=== PATIENT | male | born 1945 | race Caucasian/White ===

== ENCOUNTER → 2017-09-26 10:47 | Outpatient (CLI) | payer MEDICARE, OTHER, SELFPAY ==
--- NOTE | 2017-09-26 10:55 | XR_ITS ---
XR KUB HISTORY: Follow-up renal stone ITS.REASON: KUB ORDERING PHYSICIAN: Demian Adams MD PATIENT AGE: 71 years COMPARISON: 08/02/2016 FINDINGS: A 4 mm stone is present in the mid polar region left kidney unchanged. No obvious ureteral calculi. Multiple surgical clips are present in the lower pelvic region. IMPRESSION: No change left nephrolithiasis.
== END ==
PROVIDERS: PCP Physician Assistant; Visit Provider Urology
DX: N20.0 Calculus of kidney (principal)
CPT/HCPCS: 74018

== ENCOUNTER → 2017-12-21 14:54 | Outpatient (CLI) | payer MEDICARE, OTHER, SELFPAY ==
[2017-12-21 17:58] LABS: Free T4 (Free Thyroxine) 1.14 ng/dl (0.76-1.46); Thyroid Stimulating Hormone 0.34 uIU/ml (0.358-3.740)
[2017-12-23 08:20] LABS: Thyroid Peroxidase Antibodies 11 IU/mL (0-34)
[2017-12-25 11:14] LABS: Triiodothyronine (T3) Free 3.5 pg/mL (2.0-4.4)
[2017-12-25 11:17] LABS: Calcitonin 5.5 pg/mL (0.0-8.4)
== END ==
PROVIDERS: Visit Provider Otolaryngology
DX: E04.9 Nontoxic goiter, unspecified (principal); E07.9 Disorder of thyroid, unspecified
CPT/HCPCS: 36415; 82308; 84439; 84443; 84481; 86376

== ENCOUNTER → 2017-12-25 10:18 | Outpatient (CLI) | payer MEDICARE, OTHER, SELFPAY ==
--- NOTE | 2017-12-25 10:22 | US_ITS ---
US organ site (thyroid), FNA w guidance, US thyroid Ordering Physician: Niranjan Hopkins MD Patient Age: 72 years: Male HISTORY: ITS.REASON: fine needle bx for goiterthyroid nodules identified at [address] Nontoxic multinodular goiter history. . COMPARISON. No prior images available: Prior study performed at [facility]-patient did not bring outside films but report available and describes nodules at mid and lower left thyroid . . ----COMPLETE ULTRASOUND THYROID:-------- . Entire gland surveyed with Multiple sagittal & transverse ultrasound images of the thyroid. Heterogeneous thyroid with vague ill-defined areas of nodularity/ multinodular goiter appearance RIGHT LOBE: 4.2 cm in length as 1.7 cm wide x 1.2 cm AP. Nodule A: Vague 7.8 mm x 8.9 mm ill-defined solid nodule medial aspect upper pole right lobe. Nodule B: Vague 8.5 mm x 6.5 mm ill-defined nodule posterior aspect mid right lobe Nodule C:. Slightly better delineated 12 mm X 10 x 7 mm mm solid nodule posterior lower lobe LEFT LOBE: 4.7 cm length x 2.3 cm wide x 1.8 cm AP.. Nodules identified in the left lobe generally match the available report from [facility]. Nodule A:. Small 11 mm x 9 mm x 6.8 mm solid nodule posterior aspect upper pole left lobe Nodule B: 5.3 mm tiny solid nodule anterior aspect of mid left lobe, near junction with the isthmus *Nodule C: Large up to 3.3 cm length x 1.5 cm AP; dominant solid nodule at the mid to lower left lobe. This will be primary targeted for today's FNA biopsy. Nodule D:.. Solid nodule at the lower pole-measures up to 2.5 cm in length I suspect is confluent with nodule E described below.. *Nodule E:. Generous 2.2 cm length x 1 cm AP x 1.7 cm wide solid nodule with some hypoechoic areas within it. This areas sampled along with adjacent labeled nodule D This nodule is along the anterior aspect of lower pole left lobe near left lobe-isthmus junction. ISTHMUS: Moderate thickness measuring 5.1 mm AP.. No additional nodules are . The outside report suggested considering biopsy of dominant nodules at mid left lobe & lower pole left lobe and thus\this larger left lobe nodule were targeted.This initial complete thyroid scan and provides overview and also determined the best approach for access to perform aspiration biopsy of these 2 left lobe nodules. Scanning by Dr. Boo & MW ------ULTRASOUND-GUIDED FNA BIOPSY ----- 2 dominant nodules LEFT LOBE thyroid sampled with ultrasound-guided FNA biopsy technique . Sterile preparation as well as local skin, with cautious deeper placement of Xylocaine anesthetic initially performed .. Thereafter FNA biopsy performed . ====== FNA#1.-Left lobe Dominant nodule midportion LEFT LOBE. Under ultrasound guidance the 25-gauge hypodermic biopsy needle, was advanced to the nodule and positioned. Needle tip was observed and documented passing into the nodule on each of 2 FNA biopsies passes. Of the large nodule the anterior midportion left lobe. Good material obtained. CYTOPATHOLOGY results nodule#1 : negative for malignancy. Consistent with benign follicular nodule ====== FNA#2.-Left lobe Dominant nodule lower pole LEFT LOBE, near junction with the isthmus. Under ultrasound guidance the 25-gauge hypodermic biopsy needle, was advanced to the nodule and positioned. Needle tip was observed and documented passing into the nodule on each of 2 FNA biopsies passes. Of the large nodule the anterior aspect lower left lobe near junction of isthmus. Good material obtained. CYTOPATHOLOGY results nodule #2 : negative for malignancy. Consistent with benign follicular nodule. Patient tolerated procedure well.
== END ==
PROVIDERS: PCP Physician Assistant; Visit Provider Otolaryngology
DX: E04.9 Nontoxic goiter, unspecified (principal)
CPT/HCPCS: 10022; 76536; 88173

== ENCOUNTER → 2018-01-10 09:43 | Outpatient (CLI) | payer MEDICARE, OTHER, SELFPAY ==
[2018-01-10 09:59] LABS: Basophils % 0.5 % (0.1-2.0); Eosinophils # 0.1 K/mm3 (0.0-0.4); Eosinophils % 1.3 % (0.1-12.0); Hematocrit 46.5 % (42.0-52.0); Hemoglobin 15.2 g/dL (14.1-18.0); Lymphocytes # 1.7 K/mm3 (0.7-4.5); Lymphocytes % 23.3 % (10-50); Mean Corpuscular HGB Conc 32.8 g/dL (31.8-35.4); Mean Corpuscular Hemoglobin 30.7 pg (27.0-31.2); Mean Corpuscular Volume 93.7 fl (80-94); Mean Platelet Volume 7.4 fl (7.4-10.4); Monocytes # 0.5 K/mm3 (0.1-1.0); Monocytes % 7.1 % (1.7-9.3); Neutrophils # 4.9 K/mm3 (1.8-7.8); Neutrophils % 67.9 % (37.0-80.0); Platelet Count 312 K/mm3 (142-424); Red Blood Count 4.96 M/mm3 (4.60-6.20); Red Cell Distribution Width 12.6 % (11.5-17.5); White Blood Count 7.3 K/mm3 (4.8-10.8)
== END ==
PROVIDERS: Visit Provider Otolaryngology
DX: Z01.810 Encounter for preprocedural cardiovascular examination (principal); Z01.812 Encounter for preprocedural laboratory examination
CPT/HCPCS: 36415; 85025; 93005

== ENCOUNTER → 2018-02-27 08:28 | Outpatient (CLI) | payer MEDICARE, OTHER, SELFPAY ==
[2018-02-27 15:27] LABS: Calcium 8.6 mg/dL (8.5-10.1); Free T4 (Free Thyroxine) 1.81 ng/dl (0.76-1.46); Thyroid Stimulating Hormone 0.04 uIU/ml (0.358-3.740)
== END ==
PROVIDERS: PCP Physician Assistant; Visit Provider Otolaryngology
DX: E04.9 Nontoxic goiter, unspecified (principal)
CPT/HCPCS: 36415; 82310; 84439; 84443

== ENCOUNTER 2018-06-04 08:00 | Outpatient (RCR) | payer MEDICARE, OTHER, SELFPAY | END 2018-07-03 09:11 | disposition home or self-care (01) | LOC: PT.CARL 08:00 | PROVIDERS: Visit Provider Orthopaedic Surgery | DX: S43.421A Sprain of right rotator cuff capsule, initial encounter (principal) | CPT/HCPCS: 97014; 97033; 97110; 97163; G0283 ==

== ENCOUNTER → 2018-07-11 07:55 | Outpatient (CLI) | payer MEDICARE, OTHER, SELFPAY ==
[2018-07-11 15:18] LABS: Free T4 (Free Thyroxine) 1.23 ng/dl (0.76-1.46); Thyroid Stimulating Hormone 0.66 uIU/ml (0.358-3.740)
== END ==
PROVIDERS: Visit Provider Otolaryngology
DX: E04.9 Nontoxic goiter, unspecified (principal); E07.9 Disorder of thyroid, unspecified
CPT/HCPCS: 36415; 84439; 84443

== ENCOUNTER → 2018-09-25 11:56 | Outpatient (CLI) | payer MEDICARE, OTHER, SELFPAY ==
[2018-09-25 14:42] LABS: Prostate Specific Ag, Diagnost < 0.05 ng/mL (0.0-4.0)
== END ==
PROVIDERS: Visit Provider Urology
DX: R97.20 Elevated prostate specific antigen [PSA] (principal)
CPT/HCPCS: 36415; 84153

== ENCOUNTER → 2018-12-24 07:29 | Outpatient (CLI) | payer MEDICARE, OTHER, SELFPAY ==
[2018-12-24 14:08] LABS: Basophils # 0.1 K/mm3 (0-0.2); Basophils % 0.7 % (0.1-2.0); Eosinophils # 0.2 K/mm3 (0.0-0.4); Eosinophils % 2.3 % (0.1-12.0); Hematocrit 47.9 % (42.0-52.0); Hemoglobin 15.5 g/dL (14.1-18.0); Lymphocytes # 1.6 K/mm3 (0.7-4.5); Lymphocytes % 19.7 % (10-50); Mean Corpuscular HGB Conc 32.4 g/dL (31.8-35.4); Mean Corpuscular Hemoglobin 31.1 pg (27.0-31.2); Mean Corpuscular Volume 95.9 fl (80-94); Mean Platelet Volume 9.4 fl (7.4-10.4); Monocytes # 0.5 K/mm3 (0.1-1.0); Monocytes % 5.8 % (1.7-9.3); Neutrophils # 5.8 K/mm3 (1.8-7.8); Neutrophils % 71.6 % (37.0-80.0); Platelet Count 325 K/mm3 (142-424); Red Cell Distribution Width 12.8 % (11.5-17.5)
[2018-12-24 14:54] LABS: Alanine Aminotransferase 20 U/L (12-78); Albumin Level 3.6 gm/dL (3.4-5.0); Albumin/Globulin Ratio 1.2 (1.1-1.8); Alkaline Phosphatase 58 U/L (46-116); Anion Gap 14.3 mEq/L (5-15); Aspartate Amino Transferase 15 U/L (15-37); Bilirubin,Total 0.8 mg/dL (0.2-1.0); Blood Urea Nitrogen 14 mg/dL (7-18); Calcium 8.9 mg/dL (8.5-10.1); Carbon Dioxide 25 mmol/L (21.0-32.0); Chloride 106 mmol/L (98-107); Cholesterol 195 mg/dL (140-200); Creatinine,Serum 0.99 mg/dL (0.70-1.30); Estimated Glomerular Filt Rate 74 ml/min (>60); GFR (African American) 90 ML/MIN (>60); Glucose 99 mg/dL (74-106); HDL Cholesterol 39 mg/dL (27-67); LDL Cholesterol 135 mg/dL (0-130); Potassium 4.3 mmoL/L (3.5-5.1); Sodium 141 mmol/L (136-145); Total Protein,Serum 6.6 gm/dL (6.4-8.2); Triglycerides 107 mg/dL (30-200); VLDL Cholesterol 21 mg/dL (0-40)
[2018-12-24 17:29] LABS: Hemoglobin A1C 5.8 % (0.0-7.0)
== END ==
PROVIDERS: PCP Nurse Practitioner Family; Visit Provider Nurse Practitioner Family
DX: Z00.00 Encounter for general adult medical examination without abnormal findings (principal); Z13.1 Encounter for screening for diabetes mellitus; Z13.220 Encounter for screening for lipoid disorders; Z12.5 Encounter for screening for malignant neoplasm of prostate; Z79.899 Other long term (current) drug therapy; N20.0 Calculus of kidney; R97.20 Elevated prostate specific antigen [PSA]
CPT/HCPCS: 36415; 80053; 80061; 83036; 85025; G0103

== ENCOUNTER → 2019-01-08 08:01 | Outpatient (CLI) | payer MEDICARE, OTHER, SELFPAY ==
[2019-01-08 14:33] LABS: Free T4 (Free Thyroxine) 1.28 ng/dl (0.76-1.46); Thyroid Stimulating Hormone 0.41 uIU/ml (0.358-3.740)
== END ==
PROVIDERS: Visit Provider Otolaryngology
DX: E03.9 Hypothyroidism, unspecified (principal)
CPT/HCPCS: 36415; 84439; 84443

== ENCOUNTER → 2019-04-22 07:08 | Outpatient (CLI) | payer MEDICARE, OTHER, SELFPAY ==
[2019-04-22 14:19] LABS: Chloride 107 mmol/L (98-107)
[2019-04-22 14:20] LABS: Potassium 4.2 mmoL/L (3.5-5.1); Sodium 141 mmol/L (136-145)
[2019-04-22 14:22] LABS: Alanine Aminotransferase 14 U/L (12-78); Albumin Level 3.8 g/dl (3.5-5.0); Albumin/Globulin Ratio 1.5 (1.1-1.8); Alkaline Phosphatase 53 U/L (38-126); Anion Gap 11.2 mEq/L (5-15); Aspartate Amino Transferase 20 U/L (17-59); Bilirubin,Total 0.9 mg/dl (0.2-1.3); Blood Urea Nitrogen 15 mg/dl (9-20); Carbon Dioxide 27 mmol/L (22.0-30.0); Estimated Glomerular Filt Rate 83 ml/min (>60); GFR (African American) 100 ML/MIN (>60); Globulin 2.6 g/dL (1.3-3.2); Total Protein,Serum 6.4 g/dl (6.3-8.2)
[2019-04-22 14:23] LABS: Calcium 9.1 mg/dl (8.4-10.2); Chol/HDL Ratio 6.2 (1-3.5); Cholesterol 191 mg/dl (140-200); Glucose 92 mg/dl (74-100); HDL Cholesterol 31 mg/dl (40-60); Triglycerides 101 mg/dl (30-150); VLDL Cholesterol 20 mg/dL (0-40)
[2019-04-22 14:35] LABS: Basophils % 0.3 % (0.1-2.0); Eosinophils # 0.1 K/mm3 (0.0-0.4); Eosinophils % 1.7 % (0.1-12.0); Hematocrit 47.9 % (42.0-52.0); Hemoglobin 15.4 g/dL (14.1-18.0); Lymphocytes # 1.6 K/mm3 (0.7-4.5); Lymphocytes % 21.5 % (10-50); Mean Corpuscular HGB Conc 32.2 g/dL (31.8-35.4); Mean Corpuscular Hemoglobin 31.3 pg (27.0-31.2); Mean Corpuscular Volume 97.2 fl (80-94); Mean Platelet Volume 9.1 fl (7.4-10.4); Monocytes # 0.5 K/mm3 (0.1-1.0); Monocytes % 6.6 % (1.7-9.3); Neutrophils # 5.2 K/mm3 (1.8-7.8); Neutrophils % 69.9 % (37.0-80.0); Platelet Count 301 K/mm3 (142-424); Red Blood Count 4.93 M/mm3 (4.60-6.20); Red Cell Distribution Width 12.7 % (11.5-17.5); White Blood Count 7.4 K/mm3 (4.8-10.8)
[2019-04-22 16:08] LABS: Triiodothryronine (T3) Uptake 35 % (23.5-40.5)
[2019-04-22 16:09] LABS: Free Thyroxine Index 3.4 ug/dL (5.93-13.13); T4 (Thyroxine) 9.7 ug/dl (5.53-11.0)
[2019-04-22 16:15] LABS: Hemoglobin A1C 5.5 % (4.0-6.0)
[2019-04-22 16:23] LABS: Thyroid Stimulating Hormone 1.03 uIU/mL (0.465-4.68)
== END ==
PROVIDERS: Visit Provider Nurse Practitioner Family
DX: E78.5 Hyperlipidemia, unspecified (principal); Z13.29 Encounter for screening for other suspected endocrine disorder; Z79.899 Other long term (current) drug therapy
CPT/HCPCS: 36415; 80053; 80061; 83036; 84436; 84443; 84479; 85025

== ENCOUNTER → 2020-01-14 10:27 | Outpatient (CLI) | payer MEDICARE, OTHER, SELFPAY ==
[2020-01-14 11:47] LABS: Free T4 (Free Thyroxine) 1.42 ng/dl (0.78-2.19)
[2020-01-14 12:00] LABS: Thyroid Stimulating Hormone 0.29 uIU/mL (0.465-4.68)
[2020-01-15 11:53] LABS: Thyroid Peroxidase Antibodies <9 IU/mL (0-34)
[2020-01-17 09:43] LABS: Thyroid Stimulating Immunoglob <0.10 IU/L (0.00-0.55)
== END ==
PROVIDERS: Visit Provider Otolaryngology
DX: E03.9 Hypothyroidism, unspecified (principal)
CPT/HCPCS: 36415; 84439; 84443; 84445; 86376

== ENCOUNTER → 2020-06-11 07:51 | Outpatient (CLI) | payer MEDICARE, OTHER, SELFPAY ==
[2020-06-11 14:00] LABS: Basophils % 0.6 % (0.1-2.0); Eosinophils # 0.2 K/mm3 (0.0-0.4); Eosinophils % 2.3 % (0.1-12.0); Hematocrit 45.6 % (42.0-52.0); Hemoglobin 14.5 g/dL (14.1-18.0); Lymphocytes # 1.5 K/mm3 (0.7-4.5); Lymphocytes % 24.2 % (10-50); Mean Corpuscular HGB Conc 31.7 g/dL (31.8-35.4); Mean Corpuscular Hemoglobin 30.6 pg (27.0-31.2); Mean Corpuscular Volume 96.5 fl (80-94); Mean Platelet Volume 8.5 fl (7.4-10.4); Monocytes # 0.5 K/mm3 (0.1-1.0); Monocytes % 8.6 % (1.7-9.3); Neutrophils # 4.1 K/mm3 (1.8-7.8); Neutrophils % 64.2 % (37.0-80.0); Platelet Count 250 K/mm3 (142-424); Red Blood Count 4.72 M/mm3 (4.60-6.20); Red Cell Distribution Width 12.4 % (11.5-17.5); White Blood Count 6.3 K/mm3 (4.8-10.8)
[2020-06-11 14:07] LABS: Alanine Aminotransferase 13 U/L (12-78); Albumin Level 3.7 g/dl (3.5-5.0); Albumin/Globulin Ratio 1.5 (1.1-1.8); Alkaline Phosphatase 57 U/L (38-126); Anion Gap 7.2 mEq/L (5-15); Aspartate Amino Transferase 19 U/L (17-59); Bilirubin,Total 1.3 mg/dl (0.2-1.3); Blood Urea Nitrogen 14 mg/dl (9-20); Calcium 8.9 mg/dl (8.4-10.2); Carbon Dioxide 26 mmol/L (22.0-30.0); Chloride 110 mmol/L (98-107); Chol/HDL Ratio 6.1 (1-3.5); Cholesterol 189 mg/dl (140-200); Estimated Glomerular Filt Rate 95 ml/min (>60); GFR (African American) 115 ML/MIN (>60); Globulin 2.5 g/dL (1.3-3.2); Glucose 96 mg/dl (74-100); HDL Cholesterol 31 mg/dl (40-60); Potassium 4.2 mmoL/L (3.5-5.1); Sodium 139 mmol/L (136-145); Total Protein,Serum 6.2 g/dl (6.3-8.2); Triglycerides 108 mg/dl (30-150); VLDL Cholesterol 22 mg/dL (0-40)
[2020-06-11 14:20] LABS: Hemoglobin A1C 5.6 % (4.0-6.0)
[2020-06-11 14:24] LABS: Triiodothryronine (T3) Uptake 37 % (23.5-40.5)
[2020-06-11 14:36] LABS: Direct LDL Cholesterol 126.44 mg/dL (100-129)
[2020-06-11 14:38] LABS: Prostate Specific Ag Screen < 0.1 ng/ml (0.0-4.0)
[2020-06-11 14:53] LABS: Free Thyroxine Index 3.7 ug/dL (5.93-13.13)
[2020-06-11 15:06] LABS: Thyroid Stimulating Hormone 0.58 uIU/mL (0.465-4.68)
== END ==
PROVIDERS: Visit Provider Nurse Practitioner Family
DX: E78.5 Hyperlipidemia, unspecified (principal); Z13.1 Encounter for screening for diabetes mellitus; Z85.46 Personal history of malignant neoplasm of prostate; Z12.5 Encounter for screening for malignant neoplasm of prostate; Z79.899 Other long term (current) drug therapy
CPT/HCPCS: 36415; 80053; 80061; 83036; 84436; 84443; 84479; 85025; G0103

== ENCOUNTER → 2021-01-05 08:26 | Outpatient (CLI) | payer MEDICARE, OTHER, SELFPAY ==
[2021-01-05 15:59] LABS: Free T4 (Free Thyroxine) 1.44 ng/dl (0.78-2.19)
== END ==
PROVIDERS: Visit Provider Otolaryngology
DX: E89.0 Postprocedural hypothyroidism (principal)
CPT/HCPCS: 36415; 84439; 84443